=== PATIENT | female | born 1995 | race Hispanic/Latino ===

== ENCOUNTER → 2016-05-04 | Outpatient (CLI) | payer OTHER ==
[~2016-05-04] MED LIST: CODE-54 PO; FRS325T PO; Ibuprofen PO; PREN-93 PO
--- NOTE | 2016-05-04 15:23 | Diagnostic Imaging Report ---
INDICATION: survey. COMPARISON: None. DISCUSSION: Transabdominal sonographic evaluation of the gravid uterus was performed. Single live intrauterine at 18 weeks 6 days by sonographic measurements. EDC by today's ultrasound is 09/29/2016. The cervix measures 4.5 cm. Normal amniotic fluid index. presentation varies throughout the exam. Placenta is located within the fundus with no placenta previa. heart rate measures 155 beats per minute. Biparietal diameter measures 4.3 cm. Head circumference measures 15.7 cm. The abdominal circumference measures 13.9 cm. Femur length measures 2.7 cm. Good visualization of the kidneys, bladder, stomach, brain, four-chamber heart, three-vessel cord, spine, and extremities. Estimated weight is 258 g. The cord insertion was not visualized due to positioning. IMPRESSION: 1. Single live intrauterine at 18 weeks 6 days by sonographic measurements. 2. Poor visualization of the umbilical cord insertion due to positioning. Recommend short-term sonographic followup. The remainder of the anatomical survey appears within normal limits. Dictated by: Dictated on workstation # [id number]
== END ==
LOC: RAD 13:50
PROVIDERS: ATTEND Family Medicine
DX: Z34.80 Encounter for supervision of other normal pregnancy, unspecified trimester (principal)
CPT/HCPCS: 76805

== ENCOUNTER → 2016-07-15 | Outpatient (CLI) | payer OTHER | LOC: LAB 13:49 | PROVIDERS: ATTEND Family Medicine | DX: R73.02 Impaired glucose tolerance (oral) (principal) | CPT/HCPCS: 36415; 82951; 82952; 82962 ==

== ENCOUNTER 2016-09-17 11:47 | Outpatient (CLI) | payer OTHER ==
[~2016-09-17] VITALS: Ht 142.2 cm; Wt 67.1 kg
[2016-09-17 11:59] VITALS: BP 110/72
== END 2016-09-17 12:05 | disposition home or self-care (01) ==
LOC: PREOP 11:47
PROVIDERS: ATTEND Obstetrics & Gynecology
DX: Z01.818 Encounter for other preprocedural examination (principal); Z11.2 Encounter for screening for other bacterial diseases; O34.211 Maternal care for low transverse scar from previous cesarean delivery
CPT/HCPCS: 87081

== ENCOUNTER 2016-09-23 05:48 | Inpatient (IN) | payer OTHER ==
[~2016-09-23] VITALS: Ht 142.2 cm; Wt 66.3 kg
[~2016-09-23 05:48] MED LIST changes: +CITRIC ACID/SOB CIT (BICITRA) 30 ML UDC ONE; +FAMOTIDINE 20MG/2ML IV (PEPCID) ONE; +LACTATED RINGERS 1,000 ML IV ONE; +METOCLOPRAMIDE INJ 10 MG/2 ML (REGLAN) ONE; +NS (IVPB) 50 ML ONE; +ceFAZolin 1,000 MG (ANCEF) VIAL ONE
[2016-09-23] MEDS ORDERED: D5 LR IV SOLUTION 1,000 ML IV SCH (05:53)
[2016-09-23 06:00] VITALS: BP 109/68
[2016-09-23] MEDS ORDERED: FAMOTIDINE 20MG/2ML IV (PEPCID) IV ONE (06:00)
[2016-09-23] MEDS ORDERED: CATHETER FLUSH 10 ML SYR IV SCH ×2 (06:00→14:00)
[2016-09-23] MEDS ORDERED: METOCLOPRAMIDE INJ 10 MG/2 ML (REGLAN) IV ONE (06:00)
[2016-09-23] MEDS ORDERED: CITRIC ACID/SOB CIT (BICITRA) 30 ML UDC PO ONE (06:00)
[2016-09-23] MEDS ORDERED: CATHETER FLUSH 10 ML SYR IV PRN (06:00)
[2016-09-23 06:17] LABS: BILIRUBIN,URINE NEGATIVE (NEGATIVE); KETONES,URINE NEGATIVE (NEGATIVE); LEUKOCYTE ESTERASE ,URINE 2+ (NEGATIVE); NITRITE,URINE NEGATIVE (NEGATIVE); PH,URINE 7 (5-9); PROTEIN,URINE 1+ (NEGATIVE); UROBILINOGEN,URINE NORMAL (NORMAL)
[2016-09-23 06:49] LABS: BASOPHILS % (AUTO) 0 % (0-10); EOSINOPHILS # (AUTO) 0.1 10^3/uL (0.0-0.3); EOSINOPHILS % (AUTO) 1 % (0-10); LYMPHOCYTES % (AUTO) 22 % (12-44); MEAN CORPUSCULAR HEMOGLOBIN 27 PG (25-34); MEAN CORPUSCULAR HGB CONC 33 G/DL (32-36); MEAN CORPUSCULAR VOLUME 82 FL (80-99); MEAN PLATELET VOLUME 10.9 FL (7.4-10.4); MONOCYTES # (AUTO) 0.7 X 10^3 (0.0-1.0); MONOCYTES % (AUTO) 7 % (0-12); NEUTROPHILS # (AUTO) 6.1 X 10^3 (1.8-7.8); NEUTROPHILS % (AUTO) 69 % (42-75); PLATELET COUNT 256 10^3/uL (130-400); RED BLOOD COUNT 4.08 10^6/uL (4.35-5.85); RED CELL DISTRIBUTION WIDTH 14.6 % (10.0-14.5); WHITE BLOOD COUNT 8.8 10^3/uL (4.3-11.0)
[2016-09-23] MEDS ORDERED: fentaNYL INJECTION 100 MCG/2 ML AMP ONE (07:00)
[2016-09-23] MEDS ORDERED: OXYTOCIN/NORMAL SALINE 1,000 ML IV ONE (07:00)
--- NOTE | 2016-09-23 07:15 | History & Physical-OB ---
OB - Chief Complaint & HPI Date Date of Admission: Date of Admission: Sep 23, 2016 at 5:48 am Chief Complaint/History OB-Reason for Admission/Chief: Section Hx : 2 Hx Para: 1 Expected Date of Delivery: Sep 30, 2016 Gestational Age in Weeks: 39 Indication for : desires repeat Admission Nurse Assessment Rev: Yes History of Labs O pos Antibody neg RI RPR NR HBsAg NR HIV NR GC neg GBS unknown Allergies and Home Medications Allergies Coded Allergies: No Known Drug Allergies (Unverified , 03/12/14) Home Medications No Active Prescriptions or Reported Meds OB - History Hx of Present Care: Yes Ultrasounds: Normal mid trimester US Obstetrical Complications: None Medical Complications: None Patient Past Medical History n/a Social History/Family History Recent Infectious Disease Expo: No Alcohol Use: Denies Use Recreational Drug Use: No Immunizations Date of Influenza Vaccine: Feb 15, 2014 OB - Admission Exam Physical Exam Vitals: Vital Signs 09/23/16 06:00 Temp 97.2 Pulse 75 Resp 18 B/P (MAP) 109/68 HEENT: NCAT Heart: Rhythm Normal Lungs: Clear Abdomen: Gravid Extremities: Normal Reflexes: Normal Heart Rate: 130's Accelerations: Accelerations Present Decelerations: No Decelerations Short Term Variability: Present Warrant Server Variability: Absent (0-2) Contractions on Admission: >10 Minutes Apart Intensity: Mild Labs Laboratory Tests Test 09/23/16 05:50 09/23/16 06:30 Range/Units Urine Color YELLOW Urine Clarity CLEAR Urine pH 7 5-9 Urine Specific [place] 1.015 L 1.016-1.022 Urine Protein 1+ H NEGATIVE Urine Glucose (UA) NEGATIVE NEGATIVE Urine Ketones NEGATIVE NEGATIVE Urine Nitrite NEGATIVE NEGATIVE Urine Bilirubin NEGATIVE NEGATIVE Urine Urobilinogen NORMAL NORMAL MG/DL Urine Leukocyte Esterase 2+ H NEGATIVE Urine RBC (Auto) NEGATIVE NEGATIVE Urine RBC NONE /HPF Urine WBC 5-10 H /HPF Urine Squamous Epithelial Cells 10-25 H /HPF Urine Crystals NONE /LPF Urine Bacteria MODERATE H /HPF Urine Casts NONE /LPF Urine Mucus NEGATIVE /LPF Urine Culture Indicated YES White Blood Count 8.8 4.3-11.0 10^3/uL Red Blood Count 4.08 L 4.35-5.85 10^6/uL Hemoglobin 10.9 L 11.5-16.0 G/DL Hematocrit 33 L 35-52 % Mean Corpuscular Volume 82 80-99 FL Mean Corpuscular Hemoglobin 27 25-34 PG Mean Corpuscular Hemoglobin Concent 33 32-36 G/DL Red Cell Distribution Width 14.6 H 10.0-14.5 % Platelet Count 256 130-400 10^3/uL Mean Platelet Volume 10.9 H 7.4-10.4 FL Neutrophils (%) (Auto) 69 42-75 % Lymphocytes (%) (Auto) 22 12-44 % Monocytes (%) (Auto) 7 0-12 % Eosinophils (%) (Auto) 1 0-10 % Basophils (%) (Auto) 0 0-10 % Neutrophils # (Auto) 6.1 1.8-7.8 X 10^3 Lymphocytes # (Auto) 2.0 1.0-4.0 X 10^3 Monocytes # (Auto) 0.7 0.0-1.0 X 10^3 Eosinophils # (Auto) 0.1 0.0-0.3 10^3/uL Basophils # (Auto) 0.0 0.0-0.1 10^3/uL OB - Assessment/Plan/Diagnosis Assessment Assessment: section Plan Plan: Section Discharge Diagnosis Diagnosis: 21 yo @ 39 weeks Previous ERIC VALENTIN DO Sep 23, 2016 7:15 am
[2016-09-23] MEDS ORDERED: KETAMINE HCL 100 MG/ML 5 ML VIAL ONE (07:27)
[2016-09-23] MEDS ORDERED: OXYTOCIN/NORMAL SALINE 500 ML IV SCH (08:16)
--- NOTE | 2016-09-23 08:22 | Discharge Inst-Women's Service ---
Discharge Inst-Women's Serv Depart Medication/Instructions New, Converted or Re-Newed RX: RX on Chart Consults/Follow Up Additional Follow Up: Yes Orders/Referrals Dr. Abdi in 7-[address] Maki in 6 weeks Activity Activity: Activity as Tolerated Driving Instructions: You May Drive NO SMOKING: NO SMOKING Nothing Inside Vagina: No Douching, No Gracey, No Tampons Diet Discharge Diet: No Restrictions Symptoms to Report to : Bleeding Excessive, Pain Increased, Fever Over 101 Degrees F, Vaginal Bleeding Increase, Questions/Concerns For Any Problems or Questions: Contact Your Physician Skin/Wound Care Infection Signs and Symptoms: Increased Redness, Foul Odor of Wound, Increased Drainage, Skin Itchy or Has a Rash, Increased Swelling, Temperature Above 101 F Operative Area Clean and Dry: Keep Incision Clean/Dry Stitches/[place]/Dermabond: Dermabond, Care of Stitches Bathing Instructions: ERIC Del Angel DO Sep 23, 2016 08:22
[2016-09-23] MEDS ORDERED: HYDR-3812 PO (08:24)
[2016-09-23] MEDS ORDERED: IBUP-1773 PO (08:24)
[2016-09-23] MEDS ORDERED: DOCU100C37 PO (08:24)
[2016-09-23] MEDS ORDERED: MEASLES,MUMPS,RUBELLA 1 EA INJ SC SCH (08:30)
[2016-09-23] MEDS ORDERED: HYDROmorphone (DILAUDID) 2 MG/ML VIAL IVP PRN (08:30)
[2016-09-23] MEDS ORDERED: TETANUS,DIPTH,PERTUSS P/F (BOOSTRIX) 0.5 ML VIAL IM SCH (08:30)
[2016-09-23] MEDS ORDERED: ONDANSETRON 4 MG/2 ML (SDV) Z0FRAN IVP PRN (08:30)
--- NOTE | 2016-09-23 08:47 | OPERATIVE REPORT ---
DATE OF SERVICE: PREOPERATIVE DIAGNOSES: 1. A 21-year-old at 39 weeks' gestation. 2. Previous section x1. POSTOPERATIVE DIAGNOSES: 1. A 21-year-old at 39 weeks' gestation. 2. Previous section x1. PROCEDURE: Repeat low transverse section. SURGEON: Eric Abdi DO MEDICAL RESEARCH TECH: SHASTA Frey, who was necessary for completion of the procedure. ANESTHESIA: Spinal. ESTIMATED BLOOD LOSS: 500 mL. URINE OUTPUT: 10 mL. FLUIDS: 1100 mL of lactated Ringer's solution. FINDINGS: A live male weighing 8 pounds 6 ounces, Apgars of 9 and 9. Grossly normal appearing uterus, bilateral fallopian tubes and ovaries. INDICATION FOR PROCEDURE: This 21-year-old female was a consultation in my office early in her for repeat . Her was without complication. She progressed to 39 weeks, at which point she was scheduled for repeat . Risks of the procedure were discussed with the patient in detail preoperatively, including risk of bleeding, infection, damage to any surrounding structures including but not limited to bowel, bladder, ureter, kidneys, need for blood transfusion, risk from anesthesia and even and hysterectomy were all discussed with the patient. After all of her questions were answered, consent was obtained in the preoperative area and patient was taken to the operating room. OPERATIVE REPORT IN DETAIL: Once in the operating room, spinal anesthesia was found to be adequate. She was placed in the supine position with a leftward tilt, prepped and draped in the normal sterile fashion. A timeout was performed and anesthesia is tested. I then proceeded with making a Pfannenstiel skin incision through the previously existing scar using a knife and carried down to the underlying fascia using Bovie cautery. The fascial incision is extended laterally using Bovie cautery. The superior aspect of the fascial incision was then grasped with Bernadette clamps, tented upward and dissected off the underlying rectus muscles. The inferior aspect of the fascial incision was then grasped with Bernadette clamps, tented upward and dissected off the underlying rectus muscles. The rectus muscles were then dissected down the midline using Oneil scissors, which exposed the peritoneum and allowed me to enter bluntly. There are some adhesions of the omentum to the lower uterine segment, which are taken down using Metzenbaum scissors. I then proceeded with making an incision to the vesicouterine peritoneum using a knife and bluntly dissected this off the lower uterine segment. I then proceeded with my myotomy with a knife until membranes were visualized, at which point I extended the uterine incision laterally and superiorly using bandage scissors. I then performed the myotomy using Allis clamps. Clear fluid was noted. The infant was found in vertex presentation. With gentle fundal pressure, the 's head was elevated up to the incision, where it is delivered. The nares and oropharynx are then bulb suctioned and the anterior and posterior shoulders are delivered and the infant was then brought out onto the operative field, where the cord was doubly clamped and cut. The was handed off to the waiting Dr. Maki. Cord blood was collected and 3vessel cord with intact placenta was delivered spontaneously thereafter. IV Pitocin was initiated facilitate uterine contraction. Uterine fundus became firmer with bimanual massage. The uterus was then exteriorized and cleared of all endometrial clots and debris. I then closed the uterine incision using a Vicryl suture in a running locked fashion. A second layer of imbricating 0 Monocryl was placed. Excellent hemostasis was noted after doing so. I then placed the uterus back in the pelvis and copiously irrigated the pelvis using normal saline. There was no active bleeding noted from any of my dissection planes. I then proceeded with closing the peritoneum using 3-0 Vicryl suture after placing Interceed antiadhesive over my lower transverse incision. The rectus muscles were then reapproximated using 3-0 Vicryl suture in interrupted fashion. The fascia was reapproximated using 0 Vicryl suture in running fashion. The subcutaneous tissue was reapproximated using 3-0 plain in an interrupted subcutaneous stitch and skin was reapproximated using 4-0 Monocryl in a running subcuticular. Dermabond was applied to the incision. A sterile dressing was adhesed with white tape. The patient tolerated the procedure well and was sent to the recovery area in stable condition. Lap and sponge counts were correct at the end of the procedure. Instrument counts were correct as well. One gram of Ancef was given preoperatively for infection prophylaxis. Job ID: [id number] DocumentID: [id number] Dictated Date: 09/23/2016 08:15:43 Clod Puller Date: 09/23/2016 08:47:06 Dictated By: ERIC ABDI DO
[2016-09-23] MEDS: DOCUSATE SODIUM 100 MG (COLACE) CAP PO SCH ×2 (09:00→20:30)
[2016-09-23] MEDS: KETOROLAC 30 MG/ML VIAL IVP SCH ×2 (11:13→17:59)
[2016-09-23 12:00] VITALS: BP 108/65
[2016-09-23 16:00] VITALS: BP 106/71
[2016-09-23] MEDS: HYDROcodone/APAP 5 MG/325 MG (LORTAB) TAB PO PRN ×2 (16:51→21:39)
[2016-09-23 20:25] VITALS: BP 103/65
[2016-09-24 00:07] VITALS: BP 108/70
[2016-09-24] MEDS: KETOROLAC 30 MG/ML VIAL IVP SCH ×2 (00:08→06:12)
[2016-09-24 04:07] VITALS: BP 102/69
[2016-09-24] MEDS ORDERED: KETOROLAC 30 MG/ML VIAL ONE (06:06)
[2016-09-24 06:49] LABS: BASOPHILS % (AUTO) 0 % (0-10); EOSINOPHILS # (AUTO) 0.2 10^3/uL (0.0-0.3); EOSINOPHILS % (AUTO) 2 % (0-10); LYMPHOCYTES # (AUTO) 2.3 X 10^3 (1.0-4.0); LYMPHOCYTES % (AUTO) 24 % (12-44); MEAN CORPUSCULAR HEMOGLOBIN 26 PG (25-34); MEAN CORPUSCULAR HGB CONC 32 G/DL (32-36); MEAN CORPUSCULAR VOLUME 84 FL (80-99); MEAN PLATELET VOLUME 11.5 FL (7.4-10.4); MONOCYTES # (AUTO) 0.7 X 10^3 (0.0-1.0); MONOCYTES % (AUTO) 7 % (0-12); NEUTROPHILS # (AUTO) 6.6 X 10^3 (1.8-7.8); NEUTROPHILS % (AUTO) 68 % (42-75); PLATELET COUNT 203 10^3/uL (130-400); RED BLOOD COUNT 3.27 10^6/uL (4.35-5.85); RED CELL DISTRIBUTION WIDTH 14.5 % (10.0-14.5); WHITE BLOOD COUNT 9.8 10^3/uL (4.3-11.0)
--- NOTE | 2016-09-24 07:52 | Progress Note-Standard ---
Standard Progress Note Progress Notes/Assess & Plan Progress/Assessment & Plan this patient did not speak Divehi her daughter is translating. this patient is without complaint. She is ambulating, voiding, tolerating by mouth well, has good pain control. Patient denies chest pain, denies shortness of breath, denies headache, denies nausea vomiting. Vital Signs Date Time Temp Pulse Resp B/P (MAP) Pulse Ox O2 Delivery O2 Flow Rate FiO2 09/24/16 04:07 97.5 91 18 102/69 98 09/24/16 00:07 97.6 92 18 108/70 98 09/23/16 20:25 97.3 100 18 103/65 99 09/23/16 16:00 98.2 85 20 106/71 99 09/23/16 12:00 97.2 78 20 108/65 09/23/16 11:14 97.2 I & O 09/24/16 07:00 Intake Total 2450 ml Output Total 545 ml Balance 1905 ml vital signs are stable. Patient is afebrile. Laboratory Tests Test 09/24/16 05:37 Range/Units White Blood Count 9.8 4.3-11.0 10^3/uL Red Blood Count 3.27 L 4.35-5.85 10^6/uL Hemoglobin 8.6 #L 11.5-16.0 G/DL Hematocrit 27 L 35-52 % Mean Corpuscular Volume 84 80-99 FL Mean Corpuscular Hemoglobin 26 25-34 PG Mean Corpuscular Hemoglobin Concent 32 32-36 G/DL Red Cell Distribution Width 14.5 10.0-14.5 % Platelet Count 203 130-400 10^3/uL Mean Platelet Volume 11.5 H 7.4-10.4 FL Neutrophils (%) (Auto) 68 42-75 % Lymphocytes (%) (Auto) 24 12-44 % Monocytes (%) (Auto) 7 0-12 % Eosinophils (%) (Auto) 2 0-10 % Basophils (%) (Auto) 0 0-10 % Neutrophils # (Auto) 6.6 1.8-7.8 X 10^3 Lymphocytes # (Auto) 2.3 1.0-4.0 X 10^3 Monocytes # (Auto) 0.7 0.0-1.0 X 10^3 Eosinophils # (Auto) 0.2 0.0-0.3 10^3/uL Basophils # (Auto) 0.0 0.0-0.1 10^3/uL hemoglobin is slightly low abdomen is benign. Incision is clean dry and intact. Extremities show no clubbing or cyanosis. There is no Homans sign. There is some pretibial pitting edema that is normal. Assessment and plan postoperative day number 1 status post repeat doing well. Plan is routine convalescence care with consideration for discharge home tomorrow. We will start iron supplementation due to her anemia of dilution and acute blood loss. ADELSO MACHADO MD Sep 24, 2016 7:52 am
[2016-09-24 10:06] VITALS: BP 86/53
[2016-09-24] MEDS: DOCUSATE SODIUM 100 MG (COLACE) CAP PO SCH ×2 (10:11→20:20)
[2016-09-24] MEDS: IBUPROFEN 600 MG (MOTRIN) TAB PO SCH ×2 (12:07→18:31)
[2016-09-24] MEDS: HYDROcodone/APAP 5 MG/325 MG (LORTAB) TAB PO PRN ×2 (15:58→20:21)
[2016-09-24 16:00] VITALS: BP 98/62
--- NOTE | 2016-09-24 16:01 | Anesthesia-Regional Post-Op ---
Regional Patient Condition Mental Status: Alert, Oriented x3 Circulation: Same as Pre-Op Headache: Absent Sensation: Full Recovery Motor Block: Absent Post Op Complications Complications None Follow Up Care/Instructions Patient Instructions None needed. Anesthesia/Patient Condition Patient is doing well, no complaints, stable vital signs, no apparent adverse anesthesia problems. No complications reported per nursing. JOHANNA WESTBROOK CRNA Sep 24, 2016 16:01
[2016-09-24 20:16] VITALS: BP 104/62
[2016-09-25 00:05] VITALS: BP 101/63
[2016-09-25] MEDS: IBUPROFEN 600 MG (MOTRIN) TAB PO SCH ×2 (00:07→05:54)
[2016-09-25] MEDS: HYDROcodone/APAP 5 MG/325 MG (LORTAB) TAB PO PRN (05:56)
[2016-09-25] MEDS ORDERED: FERROUS SULF 325 MG (IRON) TAB PO SCH (07:00)
--- NOTE | 2016-09-25 07:29 | Progress Note-Standard ---
Standard Progress Note Progress Notes/Assess & Plan Date Seen by Provider: Sep 25, 2016 Time Seen by Provider: 07:28 Progress/Assessment & Plan this patient did not speak Georgian her daughter is translating. this patient is without complaint. She is ambulating, voiding, tolerating by mouth well, has good pain control. Patient denies chest pain, denies shortness of breath, denies headache, denies nausea vomiting. Vital Signs Date Time Temp Pulse Resp B/P (MAP) Pulse Ox O2 Delivery O2 Flow Rate FiO2 09/24/16 04:07 97.5 91 18 102/69 98 09/24/16 00:07 97.6 92 18 108/70 98 09/23/16 20:25 97.3 100 18 103/65 99 09/23/16 16:00 98.2 85 20 106/71 99 09/23/16 12:00 97.2 78 20 108/65 09/23/16 11:14 97.2 I & O 09/24/16 07:00 Intake Total 2450 ml Output Total 545 ml Balance 1905 ml vital signs are stable. Patient is afebrile. Laboratory Tests Test 09/24/16 05:37 Range/Units White Blood Count 9.8 4.3-11.0 10^3/uL Red Blood Count 3.27 L 4.35-5.85 10^6/uL Hemoglobin 8.6 #L 11.5-16.0 G/DL Hematocrit 27 L 35-52 % Mean Corpuscular Volume 84 80-99 FL Mean Corpuscular Hemoglobin 26 25-34 PG Mean Corpuscular Hemoglobin Concent 32 32-36 G/DL Red Cell Distribution Width 14.5 10.0-14.5 % Platelet Count 203 130-400 10^3/uL Mean Platelet Volume 11.5 H 7.4-10.4 FL Neutrophils (%) (Auto) 68 42-75 % Lymphocytes (%) (Auto) 24 12-44 % Monocytes (%) (Auto) 7 0-12 % Eosinophils (%) (Auto) 2 0-10 % Basophils (%) (Auto) 0 0-10 % Neutrophils # (Auto) 6.6 1.8-7.8 X 10^3 Lymphocytes # (Auto) 2.3 1.0-4.0 X 10^3 Monocytes # (Auto) 0.7 0.0-1.0 X 10^3 Eosinophils # (Auto) 0.2 0.0-0.3 10^3/uL Basophils # (Auto) 0.0 0.0-0.1 10^3/uL hemoglobin is slightly low abdomen is benign. Incision is clean dry and intact. Extremities show no clubbing or cyanosis. There is no Homans sign. There is some pretibial pitting edema that is normal. Assessment and plan postoperative day number 1 status post repeat doing well. Plan is routine convalescence care with consideration for discharge home tomorrow. We will start iron supplementation due to her anemia of dilution and acute blood loss. 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 Patient is without complaint. She is ambulating, voiding, tolerating by mouth well, denies chest pain, denies shortness of breath, denies nausea vomiting, denies headache, has good pain control and is requesting discharge home. Vital Signs Date Time Temp Pulse Resp B/P (MAP) Pulse Ox O2 Delivery O2 Flow Rate FiO2 09/25/16 00:05 98.1 102 18 101/63 97 09/24/16 20:16 97.3 81 18 104/62 100 09/24/16 16:00 97.8 80 18 98/62 99 09/24/16 10:06 96.8 90 18 86/53 97 I & O 09/25/16 07:00 Intake Total 1400 ml Output Total 1000 ml Balance 400 ml vital signs are stable. Patient is afebrile. Abdomen is benign. Streaming show clubbing cyanosis. There is no Homans sign. There is some pretibial pitting edema that seems normal. Assessment and plan postoperative day number 2 status post repeat doing well. Plan is for discharge home with follow-up in clinic Final Diagnosis term repeat delivery ADELSO MACHADO MD Sep 25, 2016 7:29 am
[2016-09-25] MEDS: DOCUSATE SODIUM 100 MG (COLACE) CAP PO SCH (08:48)
[2016-09-25 08:50] VITALS: BP 111/65
== END 2016-09-25 11:50 | disposition home or self-care (01) | DRG 765 ==
LOC: LDRP 05:48
PROVIDERS: ADMIT Obstetrics & Gynecology; ATTEND Obstetrics & Gynecology
PROC: 10D00Z1 Extraction of Products of Conception, Low, Open Approach (ICD-10-PCS; principal; 2016-09-23 07:20)
DX: O34.211 Maternal care for low transverse scar from previous cesarean delivery (principal); O90.81 Anemia of the puerperium; D62 Acute posthemorrhagic anemia; D64.9 Anemia, unspecified; Z37.0 Single live birth; Z3A.39 39 weeks gestation of pregnancy
CPT/HCPCS: 36415; 81000; 85025; 86850; 86900; 86901; 87088; 94664

== ENCOUNTER → 2017-04-22 | Outpatient (CLI) | payer SELFPAY ==
[~2017-04-22] MED LIST changes: +ACHD5005 PO; -CITRIC ACID/SOB CIT (BICITRA) 30 ML UDC ONE; +DOCU100C37 PO; -FAMOTIDINE 20MG/2ML IV (PEPCID) ONE; +IBUP-1773 PO; -LACTATED RINGERS 1,000 ML IV ONE; -METOCLOPRAMIDE INJ 10 MG/2 ML (REGLAN) ONE; -NS (IVPB) 50 ML ONE; -ceFAZolin 1,000 MG (ANCEF) VIAL ONE
--- NOTE | 2017-04-22 17:03 | Diagnostic Imaging Report ---
INDICATION: None given. TECHNIQUE: Multiple real-time grayscale images were obtained over the gravid uterus. COMPARISON: None FINDINGS: There is a single live intrauterine fetus. Fetus is vertex and active. heart rate of 144 beats per minute. Placenta is posterior and not low. There is normal amniotic fluid index. anatomical survey is normal. Biometrical measurements are as follows: Biparietal 4.78 cm, age 20 weeks 4 days. Head circumference 18.02 cm, age 20 weeks 4 days. Abdominal circumference 17.15 cm, age 22 weeks 1 days. Femur length 3.40 cm, age 20 weeks 5 days. Sonographic estimate age: 21 weeks 0 days. Sonographic estimated date of delivery: 09-02-17. Estimated Weight: 416 gm (+/- 61 gm). LMP percentile: 2%. heart rate: 144 beats per minute. number: 1 of 1. IMPRESSION: Single live intrauterine fetus with sonographic measurements consistent with 21 weeks 0 day gestation. Sonographic EDC of 09/02/2017. Dictated on workstation # [id number]
== END ==
LOC: RAD 14:02
PROVIDERS: ATTEND Family Medicine
DX: Z36.89 Encounter for other specified antenatal screening (principal); Z3A.21 21 weeks gestation of pregnancy
CPT/HCPCS: 76805

== ENCOUNTER 2017-08-26 06:09 | Inpatient (IN) | payer OTHER ==
[~2017-08-26] VITALS: Ht 142.2 cm; Wt 66.7 kg
[~2017-08-26 06:09] MED LIST changes: +PREN-102 PO
[2017-08-26 06:11] VITALS: BP 113/73
[2017-08-26] MEDS ORDERED: ceFAZolin INJECTION 1,000 MG in NS (IVPB) 100 ML IV ONE (06:15)
[2017-08-26] MEDS ORDERED: METOCLOPRAMIDE INJ 10 MG/2 ML (REGLAN) ONE (06:23)
[2017-08-26] MEDS ORDERED: raNItidine 50 MG/2 ML INJ (ZANTAC) ONE (06:23)
[2017-08-26] MEDS ORDERED: LACTATED RINGERS 2,000 ML IV ONE (06:24)
[2017-08-26] MEDS ORDERED: CITRIC ACID/SOB CIT (BICITRA) 30 ML UDC ONE (06:24)
[2017-08-26] MEDS ORDERED: ceFAZolin 1,000 MG (ANCEF) VIAL ONE (06:29)
[2017-08-26] MEDS ORDERED: NS (IVPB) 100 ML ONE (06:29)
[2017-08-26] MEDS: LACTATED RINGERS 1,000 ML IV PRN ×2 (06:30→07:08)
[2017-08-26] MEDS ORDERED: LACTATED RINGERS 1,000 ML IV PRN (06:39)
[2017-08-26] MEDS ORDERED: raNItidine 50 MG/2 ML INJ (ZANTAC) IM/IV SCH (06:45)
[2017-08-26] MEDS ORDERED: CITRIC ACID/SOB CIT (BICITRA) 30 ML UDC PO ONE (06:45)
[2017-08-26] MEDS ORDERED: METOCLOPRAMIDE INJ 10 MG/2 ML (REGLAN) IV ONE (06:45)
[2017-08-26 06:47] LABS: BASOPHILS % (AUTO) 0 % (0-10); EOSINOPHILS # (AUTO) 0.2 10^3/uL (0.0-0.3); EOSINOPHILS % (AUTO) 2 % (0-10); HEMATOCRIT 35 % (35-52); HEMOGLOBIN 11.2 G/DL (11.5-16.0); LYMPHOCYTES % (AUTO) 27 % (12-44); MEAN CORPUSCULAR HEMOGLOBIN 26 PG (25-34); MEAN CORPUSCULAR HGB CONC 32 G/DL (32-36); MEAN CORPUSCULAR VOLUME 81 FL (80-99); MEAN PLATELET VOLUME 10.8 FL (7.4-10.4); MONOCYTES # (AUTO) 0.5 X 10^3 (0.0-1.0); MONOCYTES % (AUTO) 7 % (0-12); NEUTROPHILS # (AUTO) 4.8 X 10^3 (1.8-7.8); NEUTROPHILS % (AUTO) 65 % (42-75); PLATELET COUNT 252 10^3/uL (130-400); RED BLOOD COUNT 4.29 10^6/uL (4.35-5.85); WHITE BLOOD COUNT 7.5 10^3/uL (4.3-11.0)
[2017-08-26] MEDS ORDERED: OXYTOCIN/NORMAL SALINE 1,000 ML IV ONE (06:56)
[2017-08-26] MEDS ORDERED: fentaNYL INJECTION 100 MCG/2 ML AMP ONE (06:56)
[2017-08-26] MEDS ORDERED: LIDOCAINE PF 2% 5 ML (XYLOCAINE) VIAL ONE (06:57)
[2017-08-26] MEDS ORDERED: BUPIVACAINE SPINAL 0.75% (SENSORCAINE) 2 ML AMP ONE (06:58)
[2017-08-26] MEDS ORDERED: FAMOTIDINE 20MG/2ML IV (PEPCID) IVP ONE (07:00)
--- NOTE | 2017-08-26 07:12 | History & Physical-OB ---
OB - Chief Complaint & HPI Date/Time Date of Admission: Date of Admission: August 26, 2017 at 6:09 am Time Seen by Provider: 07:05 Chief Complaint/History OB-Reason for Admission/Chief: Section Hx : 4 Hx Para: 2 Expected Date of Delivery: September 02, 2017 Gestational Age in Weeks: 39 Indication for : desires repeat Admission Nurse Assessment Rev: Yes History of Labs Laboratory Tests Test 08/26/17 06:20 Range/Units White Blood Count 7.5 4.3-11.0 10^3/uL Red Blood Count 4.29 L 4.35-5.85 10^6/uL Hemoglobin 11.2 L 11.5-16.0 G/DL Hematocrit 35 35-52 % Mean Corpuscular Volume 81 80-99 FL Mean Corpuscular Hemoglobin 26 25-34 PG Mean Corpuscular Hemoglobin Concent 32 32-36 G/DL Red Cell Distribution Width 20.0 H 10.0-14.5 % Platelet Count 252 130-400 10^3/uL Mean Platelet Volume 10.8 H 7.4-10.4 FL Neutrophils (%) (Auto) 65 42-75 % Lymphocytes (%) (Auto) 27 12-44 % Monocytes (%) (Auto) 7 0-12 % Eosinophils (%) (Auto) 2 0-10 % Basophils (%) (Auto) 0 0-10 % Neutrophils # (Auto) 4.8 1.8-7.8 X 10^3 Lymphocytes # (Auto) 2.0 1.0-4.0 X 10^3 Monocytes # (Auto) 0.5 0.0-1.0 X 10^3 Eosinophils # (Auto) 0.2 0.0-0.3 10^3/uL Basophils # (Auto) 0.0 0.0-0.1 10^3/uL Allergies and Home Medications Allergies Coded Allergies: No Known Drug Allergies (Unverified , 08/17/17) Home Medications Vits #93/Iron Fum/FA 1 Each Tablet, 1 EACH PO DAILY, (Reported) Patient Home Medication List Home Medication List Reviewed: Yes OB - History Hx of Present Care: Yes Ultrasounds: Normal mid trimester US Obstetrical Complications: None Medical Complications: None Delivery History Adverse Rxn to Tranfusion: No Patient Past Medical History n/a Social History/Family History Recent Infectious Disease Expo: No Alcohol Use: Denies Use Recreational Drug Use: No Immunizations Date of Influenza Vaccine: Feb 15, 2014 OB - Admission Exam Physical Exam HEENT: NCAT Heart: Rhythm Normal Lungs: Clear Abdomen: Gravid Extremities: Normal Reflexes: Normal Heart Rate: 130's Accelerations: Accelerations Present Decelerations: No Decelerations Short Term Variability: Present 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: Average (6-25) Contractions on Admission: 6-10 Minutes Apart Intensity: Mild Labs Laboratory Tests Test 08/26/17 06:20 Range/Units White Blood Count 7.5 4.3-11.0 10^3/uL Red Blood Count 4.29 L 4.35-5.85 10^6/uL Hemoglobin 11.2 L 11.5-16.0 G/DL Hematocrit 35 35-52 % Mean Corpuscular Volume 81 80-99 FL Mean Corpuscular Hemoglobin 26 25-34 PG Mean Corpuscular Hemoglobin Concent 32 32-36 G/DL Red Cell Distribution Width 20.0 H 10.0-14.5 % Platelet Count 252 130-400 10^3/uL Mean Platelet Volume 10.8 H 7.4-10.4 FL Neutrophils (%) (Auto) 65 42-75 % Lymphocytes (%) (Auto) 27 12-44 % Monocytes (%) (Auto) 7 0-12 % Eosinophils (%) (Auto) 2 0-10 % Basophils (%) (Auto) 0 0-10 % Neutrophils # (Auto) 4.8 1.8-7.8 X 10^3 Lymphocytes # (Auto) 2.0 1.0-4.0 X 10^3 Monocytes # (Auto) 0.5 0.0-1.0 X 10^3 Eosinophils # (Auto) 0.2 0.0-0.3 10^3/uL Basophils # (Auto) 0.0 0.0-0.1 10^3/uL OB - Assessment/Plan/Diagnosis Assessment Assessment: section Admission Dx 22 yo @ 39 weeks gestation Previous x 2 Admission Status: Inpatient Order (span 2 midnights) Reason for Inpatient Admission: 22 yo @ 39 weeks gestation Previous x 2 Plan Plan: Section Discharge Diagnosis Diagnosis: 22 yo @ 39 weeks gestation Previous x 2 FENECH,ERIC S DO August 26, 2017 7:12 am
[2017-08-26] MEDS ORDERED: OXYTOCIN/NORMAL SALINE 500 ML IV SCH (07:22)
--- NOTE | 2017-08-26 07:25 | Discharge Inst-Women's Service ---
Discharge Inst-Women's Serv Depart Medication/Instructions New, Converted or Re-Newed RX: RX on Chart Consults/Follow Up Additional Follow Up: Yes Orders/Referrals Dr. Abdi in 7-10 days and [facility] in 6 weeks Activity Activity: Activity as Tolerated Driving Instructions: No Driving for 1 Week NO SMOKING: NO SMOKING Nothing Inside Vagina: No Douching, No Linda, No Tampons Diet Discharge Diet: No Restrictions Symptoms to Report to : Bleeding Excessive, Pain Increased, Fever Over 101 Degrees F, Vaginal Bleeding Increase, Questions/Concerns For Any Problems or Questions: Contact Your Physician Skin/Wound Care Infection Signs and Symptoms: Increased Redness, Foul Odor of Wound, Increased Drainage, Skin Itchy or Has a Rash, Increased Swelling, Temperature Above 101 F Operative Area Clean and Dry: Keep Incision Clean/Dry Stitches/[place]/Dermabond: Dermabond, Care of Stitches Bathing Instructions: ERIC Del Angel DO August 26, 2017 7:25 am
[2017-08-26] MEDS ORDERED: DOCU100C37 PO (07:26)
[2017-08-26] MEDS ORDERED: ACHD5005 PO (07:26)
[2017-08-26] MEDS ORDERED: IBUP-844 PO (07:26)
[2017-08-26] MEDS ORDERED: TETANUS,DIPTH,PERTUSS P/F (BOOSTRIX) 0.5 ML VIAL IM SCH (07:30)
[2017-08-26] MEDS ORDERED: HYDROmorphone 2 MG/ML VIAL (DILAUDID) IVP PRN (07:30)
[2017-08-26] MEDS ORDERED: MEASLES,MUMPS,RUBELLA 1 EA INJ SC SCH (07:30)
[2017-08-26] MEDS ORDERED: ONDANSETRON 4 MG/2 ML (SDV) Z0FRAN IVP PRN ×2 (07:30→09:00)
[2017-08-26] MEDS ORDERED: ONDANSETRON 4 MG/2 ML (SDV) Z0FRAN ONE (07:48)
[2017-08-26] MEDS ORDERED: PHENYLEPHRINE 100 MCG/ML 10 ML (ANESTHESIA) SYR ONE (08:00)
[2017-08-26 08:44] LABS: BILIRUBIN,URINE NEGATIVE (NEGATIVE); CLARITY,URINE CLEAR; COLOR,URINE YELLOW; GLUCOSE, URINE (UA) NEGATIVE (NEGATIVE); KETONES,URINE NEGATIVE (NEGATIVE); LEUKOCYTE ESTERASE ,URINE 1+ (NEGATIVE); NITRITE,URINE NEGATIVE (NEGATIVE); PH,URINE 7 (5-9); PROTEIN,URINE NEGATIVE (NEGATIVE); UROBILINOGEN,URINE NORMAL (NORMAL)
[2017-08-26 08:59] LABS: BACTERIA,URINE LARGE /HPF
[2017-08-26] MEDS ORDERED: PROMETHAZINE INJ 25 MG/ML (PHENERGAN) AMP IVP PRN (09:00)
[2017-08-26] MEDS: KETOROLAC 30 MG/ML VIAL IVP SCH ×3 (09:30→23:09)
[2017-08-26 10:00] VITALS: BP 123/78
[2017-08-26 12:40] VITALS: BP 118/75
[2017-08-26] MEDS: HYDROcodone/APAP 5 MG/325 MG (LORTAB) TAB PO PRN ×2 (12:40→20:27)
[2017-08-26] MEDS: DOCUSATE SODIUM 100 MG (COLACE) CAP PO SCH ×2 (13:19→20:27)
[2017-08-26] MEDS ORDERED: CATHETER FLUSH 10 ML SYR IV SCH (14:00)
--- NOTE | 2017-08-26 14:14 | OPERATIVE REPORT ---
DATE OF SERVICE: PREOPERATIVE DIAGNOSES: 1. A 22-year-old G4, P2 at 39 weeks gestation. 2. Previous section x2. POSTOPERATIVE DIAGNOSES: 1. A 22-year-old G4, P2 at 39 weeks gestation. 2. Previous section x2. PROCEDURE: Repeat low transverse section. SURGEON: Dr. Grant Valentin. ANESTHESIA: Spinal. ESTIMATED BLOOD LOSS: 450 mL. FLUIDS: 1200 mL of lactated Ringer's solution. URINE: 150 mL of clear urine at the end of procedure. SPECIMEN SENT: None. FINDINGS: A live male weighing 7 pounds 6 ounces, Apgars of 8 and 9. Grossly normal appearing uterus, bilateral fallopian tubes and ovaries. INDICATIONS FOR PROCEDURES: This 22-year-old female was a patient that was taken care of her care at the [facility]. She was sent to me for consultation for repeat . She had a previous performed by myself. Risk of the procedure was discussed with the patient in detail in the preoperative consultation. All of her questions were answered. Consent was obtained in the preoperative area. The patient was then taken to the operating room. OPERATIVE REPORT IN DETAIL: Once in the operating room, spinal analgesia was found to be adequate, placed in supine position with leftward tilt, prepped and draped in normal sterile fashion. A Pfannenstiel skin incision was made through the previously existing scar using knife and carried down to the underlying fascia using Bovie cautery. Fascial incision was extended laterally using Bovie cautery. Superior aspect of the fascial incision was then grasped with Bernadette clamps, tented up and dissected off the underlying rectus muscles. The inferior aspect of the fascial incision was then grasped with Bernadette clamps, tented up and dissected off the underlying rectus muscles. Rectus muscles were then dissected down the midline using both sharp and blunt dissection, which exposed the peritoneum, which entered bluntly and extended using blunt traction. I placed an Ger ring retractor into the peritoneal incision, which offered excellent lateral sidewall retraction. There is significant thinning of the lower uterine segments from previous uterine scar. I make an incision in the vesicouterine peritoneum and bluntly dissect the vesicouterine peritoneum off the lower uterine segment and then proceed with myotomy until membranes were visualized. I then extended uterine incision laterally and superiorly using bandage scissors. Amniotomy was performed using Allis clamp. Clear fluid was noted. The was found on the vertex presentation with gentle fundal pressure. The infant's head was delivered through the incision where the nares and oropharynx were bulb suctioned. Anterior and posterior shoulders were delivered. was then brought to the operative field. The cord was doubly clamped and cut. Infant was handed off to the waiting nurses in attendance. Cord blood was collected. A 3-vessel cord with intact placenta was delivered spontaneously thereafter. IV Pitocin was initiated to facilitate uterine contraction. Uterine fundus became firmer with bimanual massage. Uterus was then exteriorized and cleared of all endometrial clots and debris. I then closed the uterine incision using 0 Vicryl suture in a running locked fashion. A second layer of imbricating 0 Monocryl was placed. Excellent hemostasis was noted after doing so. I then placed the uterus back within the pelvis and copiously irrigated the pelvis using normal saline. There was once again no active bleeding noted from any of my dissection planes. I then placed Interceed antiadhesive over my low transverse incision and removed the Ger ring retractor. I then proceeded to close the peritoneum using 3-0 Vicryl suture in running fashion. The rectus muscle was reapproximated using 3-0 Vicryl suture in interrupted fashion. The fascia was reapproximated using 0 Vicryl suture in a running fashion. Subcutaneous tissue was reapproximated using 3-0 plain interrupted subcutaneous stitch and skin reapproximated using 4-0 Monocryl in a running subcuticular. Dermabond is applied to the incision and the incision was covered and adhesed using a sterile dressing with white tape. One gram of Ancef can probably for infection prophylaxis. The patient tolerated the procedure well and sent to recovery in stable condition. Lap and sponge counts correct at the end of the procedure. Instrument counts are correct as well as. Job ID: [id number] DocumentID: [id number] Dictated Date: 08/26/2017 08:32:34 Line Maintenance Supervisor Date: 08/26/2017 14:14:02 Dictated By: GRANT VALENTIN DO
[2017-08-26 16:07] VITALS: BP 101/67
[2017-08-26 23:09] VITALS: BP 108/73
[2017-08-27] MEDS ORDERED: KETOROLAC 30 MG/ML VIAL ONE (04:34)
[2017-08-27 05:31] VITALS: BP 104/73
[2017-08-27] MEDS: KETOROLAC 30 MG/ML VIAL IVP SCH (05:31)
[2017-08-27 06:25] LABS: BASOPHILS % (AUTO) 0 % (0-10); EOSINOPHILS # (AUTO) 0.1 10^3/uL (0.0-0.3); EOSINOPHILS % (AUTO) 1 % (0-10); HEMATOCRIT 29 % (35-52); LYMPHOCYTES # (AUTO) 1.7 X 10^3 (1.0-4.0); LYMPHOCYTES % (AUTO) 19 % (12-44); MEAN CORPUSCULAR HEMOGLOBIN 26 PG (25-34); MEAN CORPUSCULAR HGB CONC 31 G/DL (32-36); MEAN CORPUSCULAR VOLUME 83 FL (80-99); MEAN PLATELET VOLUME 10.8 FL (7.4-10.4); MONOCYTES # (AUTO) 0.5 X 10^3 (0.0-1.0); MONOCYTES % (AUTO) 6 % (0-12); NEUTROPHILS # (AUTO) 6.6 X 10^3 (1.8-7.8); NEUTROPHILS % (AUTO) 74 % (42-75); PLATELET COUNT 215 10^3/uL (130-400); RED BLOOD COUNT 3.49 10^6/uL (4.35-5.85); RED CELL DISTRIBUTION WIDTH 19.8 % (10.0-14.5); WHITE BLOOD COUNT 8.9 10^3/uL (4.3-11.0)
--- NOTE | 2017-08-27 08:03 | Postpartum Progress Note ---
Note Note Day # 1 Subjective: Patient is without complaints. Ambulating, voiding. Tolerating a regular diet without nausea or vomiting. Normal lochia. Pain is well controlled with oral pain medications. Objective: Vital Sign - Last 24 Hours 08/26/17 08/26/17 08/26/17 08/26/17 10:00 12:40 16:07 23:09 Temp 97.6 98.0 98.0 97.3 Pulse 69 77 85 89 Resp 18 18 20 18 B/P (MAP) 123/78 (93) 118/75 (89) 101/67 (78) 108/73 (85) Pulse Ox 98 O2 Delivery Room Air Room Air Room Air 08/27/17 05:31 Temp 97.5 Pulse 89 Resp 20 B/P (MAP) 104/73 (83) Pulse Ox 96 Intake and Output 08/26/17 08/26/17 08/27/17 15:00 23:00 07:00 Intake Total 3200 ml 200 ml 300 ml Output Total 600 ml Balance 2600 ml 200 ml 300 ml Physical Exam: General - Alert and oriented, no apparent distress Abdomen - Soft, appropriately tender to palpation, non-distended, fundus firm at umbilicus Extremities - no edema, negative Sherlyn's bilaterally Incision- c/d/i Assessment: POD 1 RLTCS Acute blood loss anemia Plan: Routine care. Encourage breast feeding. Encourage ambulation. Ferrous sulfate supplementation. Plan for discharge tomorrow Vitals - Labs Vital Signs - I&O Vital Signs Date Time Temp Pulse Resp B/P (MAP) Pulse Ox O2 Delivery O2 Flow Rate FiO2 08/27/17 05:31 97.5 89 20 104/73 (83) 96 08/26/17 23:09 97.3 89 18 108/73 (85) 98 08/26/17 16:07 98.0 85 20 101/67 (78) Room Air 08/26/17 12:40 98.0 77 18 118/75 (89) Room Air 08/26/17 10:00 97.6 69 18 123/78 (93) Room Air I & O 08/27/17 07:00 Intake Total 3700 ml Output Total 600 ml Balance 3100 ml Labs Laboratory Tests 08/27/17 06:15: White Blood Count 8.9, Red Blood Count 3.49L, Hemoglobin 9.0L, Hematocrit 29L, Mean Corpuscular Volume 83, Mean Corpuscular Hemoglobin 26, Mean Corpuscular Hemoglobin Concent 31L, Red Cell Distribution Width 19.8H, Platelet Count 215, Mean Platelet Volume 10.8H, Neutrophils (%) (Auto) 74, Lymphocytes (%) (Auto) 19 , Monocytes (%) (Auto) 6, Eosinophils (%) (Auto) 1, Basophils (%) (Auto) 0, Neutrophils # (Auto) 6.6, Lymphocytes # (Auto) 1.7, Monocytes # (Auto) 0.5, Eosinophils # (Auto) 0.1, Basophils # (Auto) 0.0 ERIC VALENTIN DO August 27, 2017 08:03
[2017-08-27 09:40] VITALS: BP 109/70
[2017-08-27] MEDS: HYDROcodone/APAP 5 MG/325 MG (LORTAB) TAB PO PRN ×2 (09:48→14:00)
[2017-08-27] MEDS: DOCUSATE SODIUM 100 MG (COLACE) CAP PO SCH (09:48)
[2017-08-27] MEDS: IBUPROFEN 600 MG (MOTRIN) TAB PO SCH ×2 (12:23→18:11)
[2017-08-27 18:00] VITALS: BP 106/66
[2017-08-28 00:45] VITALS: BP 105/64
[2017-08-28] MEDS: IBUPROFEN 600 MG (MOTRIN) TAB PO SCH ×2 (00:45→06:13)
[2017-08-28] MEDS: DOCUSATE SODIUM 100 MG (COLACE) CAP PO SCH ×2 (00:45→10:17)
[2017-08-28 06:12] VITALS: BP 110/73
--- NOTE | 2017-08-28 08:23 | Progress Note-Standard ---
Standard Progress Note Progress Notes/Assess & Plan Date Seen by Provider: August 28, 2017 Time Seen by Provider: 08:20 Progress/Assessment & Plan Day # 2 Subjective: Patient is without complaints. Ambulating, voiding. Tolerating a regular diet without nausea or vomiting. Normal lochia. Pain is well controlled with oral pain medications. She is ready and wants to go home. Objective: Vital Sign - Last 24 Hours 08/27/17 08/27/17 08/28/17 08/28/17 09:40 18:00 00:45 06:12 Temp 98.0 98.4 97.7 97.8 Pulse 104 82 93 84 Resp 18 16 16 16 B/P (MAP) 109/70 (83) 106/66 (79) 105/64 (78) 110/73 (85) Pulse Ox 98 98 98 98 O2 Delivery Room Air Room Air Room Air Room Air Physical Exam: General - Alert and oriented, no apparent distress Abdomen - Soft, appropriately tender to palpation, non-distended, fundus firm at umbilicus Extremities - no edema, negative Sherlyn's bilaterally Incision- c/d/i Assessment: POD 2 RLTCS Acute blood loss anemia Plan: Routine care. Encourage breast feeding. Encourage ambulation. Ferrous sulfate supplementation. Plan for discharge tomorrow ERIC VALENTIN DO August 28, 2017 08:23
[2017-08-28] MEDS: HYDROcodone/APAP 5 MG/325 MG (LORTAB) TAB PO PRN (10:17)
[2017-08-28 10:20] VITALS: BP 113/68
--- NOTE | 2017-08-29 00:40 | Anesthesia-Regional Post-Op ---
Regional Patient Condition Mental Status: Alert, Oriented x3 Circulation: Same as Pre-Op Headache: Absent Sensation: Full Recovery Motor Block: Absent Post Op Complications Complications Post date note from 08/27/2017 at 1500 Follow Up Care/Instructions Patient Instructions None needed. Anesthesia/Patient Condition Patient is doing well, no complaints, stable vital signs, no apparent adverse anesthesia problems. No complications reported per nursing. D/C home per [facility] [place] Criteria: Yes MARGOT TADEO CRNA August 29, 2017 00:40
== END 2017-08-28 11:20 | disposition home or self-care (01) | DRG 765 ==
LOC: LDRP 06:09
PROVIDERS: ADMIT Obstetrics & Gynecology; ATTEND Obstetrics & Gynecology
PROC: 10D00Z1 Extraction of Products of Conception, Low, Open Approach (ICD-10-PCS; principal; 2017-08-26 07:14)
DX: O34.211 Maternal care for low transverse scar from previous cesarean delivery (principal); O99.03 Anemia complicating the puerperium; D62 Acute posthemorrhagic anemia; Z3A.39 39 weeks gestation of pregnancy; Z37.0 Single live birth
CPT/HCPCS: 36415; 81000; 85025; 86850; 86900; 86901; 94664

== ENCOUNTER 2020-02-23 12:37 | Inpatient (IN) | payer SELFPAY ==
[2020-02-23] VITALS (10 sets, daily range): BP systolic 84–116; BP diastolic 55–74
[~2020-02-23] VITALS: Ht 143.5 cm; Wt 68.7 kg
[~2020-02-23 12:37] MED LIST changes: +IBUP-844 PO
--- NOTE | 2020-02-23 12:45 | NUR ---
JL VICTORIA presented to unit via ambulatory from home, accompanied by friend, with c/o CONTRACTIONS. JL VICTORIA weighed, gowned, voided, and to bed. EFHM and TOCO applied, VS taken. JL VICTORIA oriented to bed controls, call light, TV, heat, and A/C controls.
[2020-02-23 12:59] LABS: BILIRUBIN,URINE NEGATIVE (NEGATIVE); CLARITY,URINE CLEAR; COLOR,URINE YELLOW; GLUCOSE, URINE (UA) NEGATIVE (NEGATIVE); KETONES,URINE NEGATIVE (NEGATIVE); LEUKOCYTE ESTERASE ,URINE 2+ (NEGATIVE); NITRITE,URINE NEGATIVE (NEGATIVE); PROTEIN,URINE NEGATIVE (NEGATIVE)
--- NOTE | 2020-02-23 13:10 | NUR ---
AMNIO SWAB PERFORMED WITH NEGATIVE RESULTS.
--- NOTE | 2020-02-23 13:13 | NUR ---
SVE BY AUNDREA. 5CM/50%/-2
--- NOTE | 2020-02-23 13:16 | NUR ---
DR. VALENTIN NOTIFIED OF PT'S ARRIVAL, COMPLAINT, CERVICAL DILATION, CTX PATTERN AND FHR TRACING. ORDERS TO CALL THE CREW FOR SECTION.
--- NOTE | 2020-02-23 13:17 | NUR ---
REGISTERED DIETITIAN NOTIFIED OF NEED TO CALL THE CREW FOR A REPEAT SECTION OF PT IN LABOR.
[2020-02-23 13:26] LABS: BACTERIA,URINE LARGE /HPF; RBC,URINE RARE /HPF
[2020-02-23] MEDS ORDERED: LACTATED RINGERS 1,000 ML IV PRN ×2 (13:28)
[2020-02-23] MEDS ORDERED: METOCLOPRAMIDE INJ 10 MG/2 ML (REGLAN) IV ONE (13:30)
[2020-02-23] MEDS ORDERED: CATHETER FLUSH 10 ML SYR IV PRN (13:30)
[2020-02-23] MEDS ORDERED: ceFAZolin 2 GM IV Premixed 50 ML IV ONE (13:30)
[2020-02-23] MEDS ORDERED: CITRIC ACID/SOB CIT (BICITRA) 30 ML UDC PO ONE (13:30)
[2020-02-23] MEDS ORDERED: FAMOTIDINE 20MG/2ML IV (PEPCID) IV ONE (13:30)
--- NOTE | 2020-02-23 13:40 | NUR ---
JOHANNA READING AGRICULTURAL RESEARCH DIRECTOR AND NIDHI SRNA AT BEDSIDE. LANGUAGE LINE UTILIZED.
--- NOTE | 2020-02-23 13:52 | NUR ---
LAB HERE TO DRAW BLOOD.
[2020-02-23] MEDS ORDERED: fentaNYL INJECTION 100 MCG/2 ML AMP ONE (13:57)
[2020-02-23] MEDS ORDERED: OXYTOCIN PRE-MIX DRIP 1,000 ML IV ONE (13:58)
[2020-02-23] MEDS ORDERED: ONDANSETRON 4 MG/2 ML (SDV) Z0FRAN ONE (13:58)
[2020-02-23] MEDS ORDERED: KETOROLAC 30 MG/ML VIAL ONE (13:58)
[2020-02-23] MEDS ORDERED: BUPIVACAINE 0.5% 30 ML (SENSORCAINE) VIAL ONE (13:59)
--- NOTE | 2020-02-23 14:03 | NUR ---
INFORMED CONSENT FOR REPEAT SECTION SIGNED/WITNESSED. LANGUAGE LINE UTILIZED.
--- NOTE | 2020-02-23 14:06 | NUR ---
SVE BY AUNDREA CHASE. 8 CM/ 60%/-2
--- NOTE | 2020-02-23 14:09 | NUR ---
EFM OFF. TO OBOR VIA PT BED ACC BY HOSPITAL MANAGER AND AUNDREA CHASE FOR REPEAT SECTION BY DR. VALENTIN R/T LABOR.
[2020-02-23 14:10] LABS: EOSINOPHILS # (AUTO) 0.1 10^3/uL (0.0-0.3); EOSINOPHILS % (AUTO) 1 % (0-10); HEMOGLOBIN 10.8 g/dL (11.5-16.0); WHITE BLOOD COUNT 10.8 10^3/uL (4.3-11.0)
[2020-02-23 14:12] LABS: BASOPHILS % (AUTO) 0 % (0-10); HEMATOCRIT 33 % (35-52); LYMPHOCYTES # (AUTO) 1.6 10^3/uL (1.0-4.0); LYMPHOCYTES % (AUTO) 15 % (12-44); MEAN CORPUSCULAR HEMOGLOBIN 27 pg (25-34); MEAN CORPUSCULAR HGB CONC 33 g/dL (32-36); MEAN CORPUSCULAR VOLUME 83 fL (80-99); MEAN PLATELET VOLUME 11.7 fL (9.0-12.2); MONOCYTES # (AUTO) 0.5 10^3/uL (0.0-1.0); MONOCYTES % (AUTO) 5 % (0-12); NEUTROPHILS # (AUTO) 8.5 10^3/uL (1.8-7.8); NEUTROPHILS % (AUTO) 79 % (42-75); PLATELET COUNT 172 10^3/uL (130-400)
--- NOTE | 2020-02-23 14:14 | NUR ---
DR. VALENTIN HERE.
[2020-02-23 14:20] LABS: SMEAR SCAN COMMENT YES
--- NOTE | 2020-02-23 14:23 | History & Physical-OB ---
OB - Chief Complaint & HPI Date/Time Date of Admission: Date of Admission: Feb 23, 2020 at 13:20 Date seen by a Provider: Feb 23, 2020 Time Seen by a Provider: 14:22 Chief Complaint/History OB-Reason for Admission/Chief: Section Hx : 4 Hx Para: 3 Expected Date of Delivery: Mar 22, 2020 Gestational Age in Weeks: 36 Gestational Age in Days: 0 Indication for : desires repeat Admission Nurse Assessment Rev: Yes Allergies and Home Medications Allergies Coded Allergies: No Known Drug Allergies (Unverified , 08/17/17) Home Medications Docusate Sodium 100 Mg Capsule, 100 MG PO BID PRN for CONSTIPATION-1ST LINE Prescribed by: ERIC VALENTIN on 08/26/17 0726 Hydrocodone Bit/Acetaminophen 1 Tab Tab, 1-2 TAB PO Q4H PRN for PAIN-MODERATE Prescribed by: ERIC VALENTIN on 08/26/17 07 Ibuprofen 600 Mg Tablet, 600 MG PO Q6H Prescribed by: ERIC VALENTIN on 08/26/17 0726 Vits #93/Iron Fum/FA 1 Each Tablet, 1 EACH PO DAILY, (Reported) Patient Home Medication List Home Medication List Reviewed: Yes OB - History Hx of Present Care: Yes Ultrasounds: Normal mid trimester US Obstetrical Complications: None Medical Complications: None Delivery History Adverse Rxn to Tranfusion: No Patient Past Medical History n/a Immunizations Date of Influenza Vaccine: Feb 15, 2014 OB - Admission Exam Physical Exam Vitals: Vital Signs 02/23/20 13:40 Temp 36.6 Pulse 84 Resp 18 Pulse Ox 99 O2 Delivery Room Air HEENT: NCAT Heart: Rhythm Normal Lungs: Clear Abdomen: Gravid Extremities: Normal Reflexes: Normal Cervical Dilatation: 7cm Heart Rate: 130's Accelerations: Accelerations Present Decelerations: No Decelerations Short Term Variability: Present Contractions on Admission: < 5 Minutes Apart Intensity: Firm Labs Laboratory Tests Test 02/23/20 12:50 02/23/20 13:52 02/23/20 14:14 Range/Units Urine Color YELLOW Urine Clarity CLEAR Urine pH 7.0 5-9 Urine Specific [place] 1.020 1.016-1.022 Urine Protein NEGATIVE NEGATIVE Urine Glucose (UA) NEGATIVE NEGATIVE Urine Ketones NEGATIVE NEGATIVE Urine Nitrite NEGATIVE NEGATIVE Urine Bilirubin NEGATIVE NEGATIVE Urine Urobilinogen 0.2 < = 1.0 MG/DL Urine Leukocyte Esterase 2+ H NEGATIVE Urine RBC (Auto) TRACE-I NEGATIVE Urine RBC RARE /HPF Urine WBC 5-10 H /HPF Urine Squamous Epithelial Cells 5-10 /HPF Urine Crystals NONE /LPF Urine Bacteria LARGE H /HPF Urine Casts NONE /LPF Urine Mucus NEGATIVE /LPF Urine Culture Indicated YES White Blood Count 10.8 4.3-11.0 10^3/uL Red Blood Count 3.99 3.80-5.11 10^6/uL Hemoglobin 10.8 L 11.5-16.0 g/dL Hematocrit 33 L 35-52 % Mean Corpuscular Volume 83 80-99 fL Mean Corpuscular Hemoglobin 27 25-34 pg Mean Corpuscular Hemoglobin Concent 33 32-36 g/dL Red Cell Distribution Width 14.2 10.0-14.5 % Platelet Count 172 130-400 10^3/uL Mean Platelet Volume 11.7 9.0-12.2 fL Immature Granulocyte % (Auto) 1 % Neutrophils (%) (Auto) 79 H 42-75 % Lymphocytes (%) (Auto) 15 12-44 % Monocytes (%) (Auto) 5 0-12 % Eosinophils (%) (Auto) 1 0-10 % Basophils (%) (Auto) 0 0-10 % Neutrophils # (Auto) 8.5 H 1.8-7.8 10^3/uL Lymphocytes # (Auto) 1.6 1.0-4.0 10^3/uL Monocytes # (Auto) 0.5 0.0-1.0 10^3/uL Eosinophils # (Auto) 0.1 0.0-0.3 10^3/uL Basophils # (Auto) 0.0 0.0-0.1 10^3/uL Immature Granulocyte # (Auto) 0.1 0.0-0.1 10^3/uL Smear Scan YES OB - Assessment/Plan/Diagnosis Assessment Assessment: active labor, section Admission Dx 24 yo @ 36 weeks Previous x 3 Active labor GBS unknown Admission Status: Inpatient Order (span 2 midnights) Reason for Inpatient Admission: Repeat Plan Plan: Section ERIC VALENTIN DO Feb 23, 2020 14:23
[2020-02-23] MEDS ORDERED: ACHD5005 PO (14:24)
[2020-02-23] MEDS ORDERED: DCS100C PO (14:24)
[2020-02-23] MEDS ORDERED: IBUP-844 PO (14:24)
--- NOTE | 2020-02-23 14:25 | Discharge Inst-Women's Service ---
Discharge Inst-Women's Serv Depart Medication/Instructions New, Converted or Re-Newed RX: RX on Chart Final Diagnosis POD 2 RLTCS Problems Reviewed?: Yes Consults/Follow Up Additional Follow Up: Yes Orders/Referrals Dr. Abdi in 7-[address] Brown in 6 weeks Activity Activity: Activity as Tolerated Driving Instructions: No Driving for 1 Week NO SMOKING: NO SMOKING Nothing Inside Vagina: No Douching, No [place], No Tampons Diet Discharge Diet: No Restrictions Symptoms to Report to : Bleeding Excessive, Pain Increased, Fever Over 101 Degrees F, Vaginal Bleeding Increase, Questions/Concerns For Any Problems or Questions: Contact Your Physician Skin/Wound Care Infection Signs and Symptoms: Increased Redness, Foul Odor of Wound, Increased Drainage, Skin Itchy or Has a Rash, Increased Swelling, Temperature Above 101 F Operative Area Clean and Dry: Keep Incision Clean/Dry Stitches/[place]/Dermabond: Dermabond, Care of Stitches Bathing Instructions: ERIC Del Angel DO Feb 23, 2020 14:25
[2020-02-23] MEDS ORDERED: TETANUS,DIPTH,PERTUSS P/F (BOOSTRIX) 0.5 ML VIAL IM SCH (14:30)
[2020-02-23] MEDS ORDERED: ONDANSETRON 4 MG/2 ML (SDV) Z0FRAN IVP PRN ×2 (14:30→14:45)
[2020-02-23] MEDS ORDERED: MEASLES,MUMPS,RUBELLA 1 EA INJ SC SCH (14:30)
[2020-02-23] MEDS ORDERED: NALOXONE 0.4 MG/ML 1 ML (NARCAN) VIAL IV PRN ×2 (14:45)
[2020-02-23] MEDS ORDERED: morphine INJ 10 MG/ML 1ML (SYR OR VIAL) IVP ONE (14:45)
[2020-02-23] MEDS ORDERED: ONDANSETRON 4 MG/2 ML (SDV) Z0FRAN IV PRN (14:45)
[2020-02-23] MEDS ORDERED: METOCLOPRAMIDE INJ 10 MG/2 ML (REGLAN) IV PRN (14:45)
[2020-02-23] MEDS ORDERED: diphenhydrAMINE 50 MG/ML INJ (BENADRYL) IV PRN (14:45)
[2020-02-23] MEDS: KETOROLAC 30 MG/ML VIAL IV SCH ×2 (15:26→22:15)
--- NOTE | 2020-02-23 16:15 | NUR ---
TRANSFERRED TO ROOM 307 VIA PT BED FROM [facility] ACC BY JULIA WINKLER RN AFTER A REPEAT SECTION IN LABOR BY DR. VALENTIN. SPEAKS ONLY MINIMAL THAI. [id number] IN ROOM ACTING RAMP MANAGER. FUNDUS MASSAGED TO FIRM @ U/0. VAGINAL FLOW LT/MOD RUBRA. PAD CHANGED. DENIES PAIN AT THIS TIME. RT NOTIFIED OF NEED TO INITIATE INCENTIVE SPIROMETRY. IV PLACED ON PUMP. SIDE RAILS UP X4. CALL LIGHT PLACED WITHIN REACH. GOOGLE TRANSLATE USED PRN.
--- NOTE | 2020-02-23 17:10 | NUR ---
TRANSPORT TEAM LEFT WITH AFTER TAKING TO MOM'S ROOM.
--- NOTE | 2020-02-23 17:56 | OPERATIVE REPORT ---
DATE OF SERVICE: PREOPERATIVE DIAGNOSES: 1. A 24-year-old G4, P3 at 36 weeks gestation. 2. Active labor. 3. labor. POSTOPERATIVE DIAGNOSES: 1. A 24-year-old G4, P3 at 36 weeks gestation. 2. Active labor. 3. labor. PROCEDURE: Repeat low transverse section. SURGEON: Grant bAdi DO ANESTHESIA: Spinal. ESTIMATED BLOOD LOSS: 700 mL. URINE OUTPUT: 150 mL clear at the end of the procedure. FLUIDS: 1600 mL of lactated Ringer's solution. FINDINGS: A live male infant, weight and Apgars pending. Grossly normal appearing uterus, bilateral fallopian tubes and ovaries. SPECIMEN SENT: Placenta. INDICATIONS FOR PROCEDURE: This 24-year-old female is a patient, who presented to the labor unit and spontaneous labor at 36 weeks. She had three prior cesareans and elected to proceed with repeat . I had seen the patient and her third trimester as a consultation from the [facility]. She had sought her care with them. I do not have a complete lab assessment or care record sent over, so I am still in the process of obtaining that. In her preoperative discussion in the office, we discussed risk of the , which she was well aware of having three prior risk of bleeding, infection, damage to surrounding structures including, but not limited to bowel, bladder, ureter, kidneys, possible need for reoperation, postoperative complication, recovery timeframe. All discussed with the patient in detail and after all of her questions were answered, consent was obtained in the preoperative area, the patient was taken to the operating room. OPERATIVE REPORT IN DETAIL: Once in the operating room, spinal analgesia was found to be adequate, she was placed in supine position with leftward tilt, prepped and draped in normal sterile fashion. A timeout was performed and anesthesia was tested. I then make a Pfannenstiel skin incision through the previously existing scar using a knife and carried down to underlying fascia using Bovie cautery. The fascial incision extended laterally using Bovie cautery. Superior aspect of fascial incision was then grasped with Bernadette clamps, tented up and dissected off the underlying rectus muscles. The inferior aspect of the fascial incision was then grasped with Bernadette clamps, tented up and dissected off the underlying rectus muscles. Rectus muscles were then dissected down the midline using Oneil scissors, which exposed the peritoneum, which I entered bluntly and extended using blunt traction. Ger ring retractor was placed in the peritoneal incision, which offers excellent lateral sidewall retraction. I then identified the lower uterine segment, which was found to be thinned out and make a low transverse incision to the vesicouterine peritoneum and bluntly dissected off the lower uterine segment. I proceeded with myotomy until membranes were visualized, at which point I extended the uterine incision laterally and superiorly using bandage scissors. Amniotomy was then performed and Allis clamp. Clear fluid was noted. The was found in vertex presentation. With gentle fundal pressure, the 's head was elevated up the incision where it was delivered through the incision. The nares and oropharynx were bulb suctioned. Anterior and posterior shoulders were delivered after nuchal cord was reduced x1 and the was then brought out to the operative field with cord doubly clamped and cut and was handed off to Dr. Ponce, who was present and attending the delivery. Cord blood was collected, 3-vessel cord with intact placenta was delivered spontaneously thereafter. IV Pitocin is initiated to facilitate uterine contraction. Uterine fundus confirmed by manual massage. The uterus was then exteriorized and cleared of all endometrial clots and debris. I then proceeded with closing the uterine incision using 0 Vicryl suture in running locked fashion. Second layer of imbricating 0 Monocryl was placed. Excellent hemostasis was noted after doing this. I then placed the uterus back in the pelvis and copiously irrigated the pelvis using normal saline. Once again, there was no active bleeding noted from any of my dissection planes. However, in the left corner of the incision at the apex, there is some continued bleeding despite cautery. Therefore, I put some Surgicel hemostatic agent over this area to ensure postoperative hemostasis and then covered this with Interceed as well. I then removed the Ger ring retractor and proceeded with closing the peritoneum using 3-0 Vicryl suture in running fashion. The rectus muscle was reapproximated using 0 Vicryl suture in an interrupted fashion. The fascia was reapproximated using 0 Vicryl suture in a running fashion. Subcutaneous tissue is thin; therefore, the skin was then reapproximated using 4-0 Monocryl in interrupted subcuticular stitch. Dermabond was applied to incision and sterile dressing with adhesive white tape. The patient tolerated the procedure well and sent to recovery in stable condition. Lap and sponge counts were correct at the end of the procedure. Instrument counts correct as well. Two grams of Ancef were given preoperatively for infection prophylaxis. Job ID: [id number] DocumentID: [id number] Dictated Date: 02/23/2020 15:08:01 Municipal Firefighter Date: 02/23/2020 17:55:28 Dictated By: DO REBECCA JOVEL
[2020-02-23] MEDS: HYDROcodone/APAP 5 MG/325 MG (LORTAB) TAB PO PRN ×2 (19:02→23:58)
--- NOTE | 2020-02-23 19:02 | NUR ---
LORTAB 2 TABS P.O. FOR C/O ABD PAIN. DENIES URGE TO VOID AT THIS TIME. FF U/0. VAG FLOW LT RUBRA. S.O. AT BEDSIDE.
[2020-02-23] MEDS: OXYTOCIN PRE-MIX DRIP 500 ML IV SCH (20:02)
[2020-02-23] MEDS: IBUPROFEN 600 MG (MOTRIN) TAB PO SCH ×2 (20:17→22:16)
--- NOTE | 2020-02-23 20:24 | NUR ---
Dr. Abdi called to check on pt, update given, no new orders rc'd.
[2020-02-23] MEDS: DOCUSATE SODIUM 100 MG (COLACE) CAP PO SCH (22:15)
[2020-02-23] MEDS: CATHETER FLUSH 10 ML SYR IV SCH (22:16)
[2020-02-24 04:30] VITALS: BP 104/61
[2020-02-24] MEDS: KETOROLAC 30 MG/ML VIAL IV SCH ×2 (04:38→10:16)
[2020-02-24] MEDS: CATHETER FLUSH 10 ML SYR IV SCH (04:39)
[2020-02-24] MEDS: IBUPROFEN 600 MG (MOTRIN) TAB PO SCH (04:47)
[2020-02-24 06:12] LABS: BASOPHILS % (AUTO) 0 % (0-10); EOSINOPHILS # (AUTO) 0.1 10^3/uL (0.0-0.3); EOSINOPHILS % (AUTO) 1 % (0-10); HEMATOCRIT 29 % (35-52); HEMOGLOBIN 9.5 g/dL (11.5-16.0); LYMPHOCYTES # (AUTO) 1.5 10^3/uL (1.0-4.0); LYMPHOCYTES % (AUTO) 15 % (12-44); MEAN CORPUSCULAR HEMOGLOBIN 28 pg (25-34); MEAN CORPUSCULAR HGB CONC 33 g/dL (32-36); MEAN CORPUSCULAR VOLUME 84 fL (80-99); MONOCYTES # (AUTO) 0.6 10^3/uL (0.0-1.0); MONOCYTES % (AUTO) 7 % (0-12); NEUTROPHILS # (AUTO) 7.5 10^3/uL (1.8-7.8); NEUTROPHILS % (AUTO) 77 % (42-75); PLATELET COUNT 202 10^3/uL (130-400); WHITE BLOOD COUNT 9.8 10^3/uL (4.3-11.0)
--- NOTE | 2020-02-24 07:24 | Anesthesia-Regional Post-Op ---
Regional Patient Condition Mental Status: Alert, Oriented x3 Circulation: Same as Pre-Op Headache: Absent Sensation: Full Recovery Motor Block: Absent Post Op Complications Complications None Follow Up Care/Instructions Patient Instructions None needed. Anesthesia/Patient Condition Patient is doing well, no complaints, stable vital signs, no apparent adverse anesthesia problems. No complications reported per nursing. JOHANNA WESTBROOK CRNA Feb 24, 2020 07:24
[2020-02-24 08:15] VITALS: BP 96/51
--- NOTE | 2020-02-24 08:15 | NUR ---
A.M. ASSESSMENT COMPLETED. VSS. EXPLAINED I AND O TO COUPLE. AGAIN DEMONSTRATED MENU AND ORDERING ALTERNATIVE CHOICES WITH STATED UNDERSTANDING. FOB HAS PULLED UP FROM [place]. ANXIOUS TO SEE INFANT. TOILETRIES GIVEN.
--- NOTE | 2020-02-24 09:25 | NUR ---
DR. VALENTIN HERE TO SEE PT.
--- NOTE | 2020-02-24 09:28 | Postpartum Progress Note ---
Note Note Day # 1 Subjective: Patient is without complaints. Ambulating, voiding. Tolerating a regular diet without nausea or vomiting. Normal lochia. Pain is well controlled with oral pain medications. transferred to [place] for RDS. Objective: Physical Exam: General - Alert and oriented, no apparent distress Abdomen - Soft, appropriately tender to palpation, non-distended, fundus firm at umbilicus Extremities - no edema, negative Sherlyn's bilaterally Incision- c/d/i Assessment: POD 1 RLTCS Acute blood loss anemia Plan: Routine care. Encourage breast feeding. Encourage ambulation. Ferrous sulfate supplementation. Plan for discharge today to go to [place] and be with . Vitals - Labs Vital Signs - I&O Vital Signs Date Time Temp Pulse Resp B/P (MAP) Pulse Ox O2 Delivery O2 Flow Rate FiO2 02/24/20 08:15 36.7 99 18 96/51 (66) 97 Room Air 02/24/20 04:30 36.3 88 18 104/61 (75) 98 Room Air 02/23/20 23:58 36.5 82 18 112/55 (74) 98 Room Air 02/23/20 21:00 36.4 88 18 110/66 (81) 97 Room Air 02/23/20 18:00 36.6 72 18 110/62 (78) 98 Room Air 02/23/20 16:15 36.4 70 16 105/56 (72) 100 Room Air 02/23/20 16:00 36.5 16 99/71 (80) 99 Room Air 02/23/20 16:00 Room Air 02/23/20 15:45 Room Air 02/23/20 15:45 36.1 16 90/65 (73) 99 Room Air 02/23/20 15:30 Room Air 02/23/20 15:30 35.8 16 90/58 (69) 98 Room Air 02/23/20 15:26 Room Air 02/23/20 15:12 36.3 16 84/57 (66) 95 Room Air 02/23/20 13:40 36.6 84 18 99 Room Air 02/23/20 13:04 36.6 86 18 116/74 (88) 99 Room Air I & O 02/24/20 07:00 Intake Total 1750 ml Output Total 1150 ml Balance 600 ml Labs Laboratory Tests 02/23/20 12:50: Urine Color YELLOW, Urine Clarity CLEAR, Urine pH 7.0, Urine Specific Thornton 1.020, Urine Protein NEGATIVE, Urine Glucose (UA) NEGATIVE, Urine Ketones NEGATIVE, Urine Nitrite NEGATIVE, Urine Bilirubin NEGATIVE, Urine Urobilinogen 0.2, Urine Leukocyte Esterase 2+H, Urine RBC (Auto) TRACE-I, Urine RBC RARE, Urine WBC 5-10H, Urine Squamous Epithelial Cells 5-10, Urine Crystals NONE, Urine Bacteria LARGEH, Urine Casts NONE, Urine Mucus NEGATIVE, Urine Culture Indicated YES 02/23/20 13:52: White Blood Count 10.8, Red Blood Count 3.99, Hemoglobin 10.8L, Hematocrit 33L, Mean Corpuscular Volume 83, Mean Corpuscular Hemoglobin 27, Mean Corpuscular Hemoglobin Concent 33, Red Cell Distribution Width 14.2, Platelet Count 172, Mean Platelet Volume 11.7, Immature Granulocyte % (Auto) 1, Neutrophils (%) (Auto) 79H, Lymphocytes (%) (Auto) 15, Monocytes (%) (Auto) 5, Eosinophils (%) (Auto) 1, Basophils (%) (Auto) 0, Neutrophils # (Auto) 8.5H, Lymphocytes # (Auto) 1.6, Monocytes # (Auto) 0.5, Eosinophils # (Auto) 0.1, Basophils # (Auto) 0.0, Immature Granulocyte # (Auto) 0.1, Smear Scan YES 02/23/20 14:14: Coronavirus 2019 ([facility]) Negative 02/24/20 05:57: White Blood Count 9.8, Red Blood Count 3.42L, Hemoglobin 9.5L, Hematocrit 29L, Mean Corpuscular Volume 84, Mean Corpuscular Hemoglobin 28, Mean Corpuscular Hemoglobin Concent 33, Red Cell Distribution Width 14.4, Platelet Count 202, Mean Platelet Volume 11.0, Immature Granulocyte % (Auto) 1, Neutrophils (%) (Auto) 77H, Lymphocytes (%) (Auto) 15, Monocytes (%) (Auto) 7, Eosinophils (%) (Auto) 1, Basophils (%) (Auto) 0, Neutrophils # (Auto) 7.5, Lymphocytes # (Auto) 1.5, Monocytes # (Auto) 0.6, Eosinophils # (Auto) 0.1, Basophils # (Auto) 0.0, Immature Granulocyte # (Auto) 0.1 ERIC VALENTIN DO Feb 24, 2020 09:28
[2020-02-24] MEDS: DOCUSATE SODIUM 100 MG (COLACE) CAP PO SCH (10:14)
[2020-02-24] MEDS: HYDROcodone/APAP 5 MG/325 MG (LORTAB) TAB PO PRN (10:18)
--- NOTE | 2020-02-24 10:20 | NUR ---
LAST TORADOL DOSE GIVEN. SALINE LOCK D/C'ED WITH TIP INTACT. SITE CLEAR. LORTAB GIVEN. WANTING TO GO HOME LATER TODAY. BOTH PT AND S.O. ON THE PHONE.
--- NOTE | 2020-02-24 10:30 | NUR ---
AMBULATED IN [place] WITH THIS RN. MOVES WELL. BACK TO ROOM. GOING TO SHOWER.
[2020-02-24 12:15] VITALS: BP 106/59
--- NOTE | 2020-02-24 12:15 | NUR ---
ASSISTED WITH FILLING OUT CERTIFICATE WORKSHEET AND PATERNITY CONSENT. VSS.
--- NOTE | 2020-02-24 12:30 | NUR ---
ABDOMINAL BINDER APPLIED.
--- NOTE | 2020-02-24 13:45 | NUR ---
DISCHARGE INSTRUCTIONS REVIEWED WITH COPY TO PT. STATES UNDERSTANDING OF ALL INSTRUCTIONS AND NEED TO F/U INSTRUCTED AND NEEDED. S.O. ACTING SAL[employer] OBJECTS. [place]H VERSION OF WRITTEN INSTRUCTIONS GIVEN.
[2020-02-24 14:50] VITALS: BP 106/59
--- NOTE | 2020-02-24 14:50 | NUR ---
DISMISSED FROM [facility] VIA W/C TO FAMILY CAR IN STABLE CONDITION ACC BY Mirna AND KAVITA SALAMANCA RN.
== END 2020-02-24 14:50 | disposition home or self-care (01) | DRG 787 ==
LOC: WSo 12:37 → LDRP 12:39 → WSo 13:20 → LDRP 16:12
PROVIDERS: ADMIT Obstetrics & Gynecology; ATTEND Obstetrics & Gynecology
PROC: 10D00Z1 Extraction of Products of Conception, Low, Open Approach (ICD-10-PCS; principal; 2020-02-23 14:12)
DX: O34.211 Maternal care for low transverse scar from previous cesarean delivery (principal); D62 Acute posthemorrhagic anemia; Z3A.36 36 weeks gestation of pregnancy; Z37.0 Single live birth; O90.81 Anemia of the puerperium
CPT/HCPCS: 36415; 81000; 85025; 86850; 86900; 86901; 87081; 87088; 87635; 99212